=== PATIENT | male | born 1935 | race Caucasian/White ===

== ENCOUNTER → 2017-02-13 | Outpatient (CLI) | payer MEDICARE ==
[2015-11-14 12:05] VITALS: BP 147/75
[~2017-02-13] MED LIST: ASCO500T3 PO; ASPI-630 PO; ATORVASTATIN CA80 MG PO; CARV6.252 PO; CHOL10003 PO; CILO100T PO; DOXY100T PO; EMPA1TAB PO; FOLI1TAB16 PO; GLIM4TAB2 PO; INSU100I13 SQ; LISI2.5T PO; MULT-208 PO; NITR0.4T22 SL; PANT40TA5 PO; PIOG30TA41 PO; TOLT4CAP PO
--- NOTE | 2017-02-13 09:53 | RAD ---
Examination: 3 views of the left thumb History: History of pain in the distal left thumb Comparison: None available Findings: The alignment of the first metacarpophalangeal, interphalangeal joint grossly appears unremarkable. Moderate degenerative changes identified in the first metacarpal joint and metacarpophalangeal joint. There is no obvious acute fracture identified. Mild soft tissue prominence identified in the distal aspect of the thumb, nonspecific could be secondary to swelling or infection. Impression No acute osseous findings. Mild soft tissue prominence identified in the distal aspect of the thumb, nonspecific could be secondary to swelling or infection. Consider follow-up MRI.
== END | disposition home or self-care (01) ==
LOC: DXRADRC 08:10
PROVIDERS: ATTEND Physician Assistant Medical
DX: M18.12 Unilateral primary osteoarthritis of first carpometacarpal joint, left hand (principal)
CPT/HCPCS: 73140

== ENCOUNTER → 2017-02-14 | Outpatient (CLI) | payer MEDICARE ==
[2015-11-14 12:05] VITALS: BP 147/75
[2017-02-14 13:02] LABS: CALCIUM 9.3 mg/dL (8.5-10.1); GFR 72.1; MAGNESIUM 2.3 mg/dL (1.8-2.4); POTASSIUM 4.3 mmol/L (3.5-5.1)
[2017-02-14 13:11] LABS: BASO # 0.1 x10^3/uL (0.0-0.2); BASO % 1 % (0-3); EOS # 0.2 x10^3/uL (0.0-0.7); EOS % 2 % (0-3); HEMOGLOBIN 15.8 g/dL (13.0-17.5); LYMPH # 1.8 x10^3/uL (1.0-4.8); LYMPH % 22 % (24-48); MEAN CORPUSCULAR HEMOGLOBIN 32 pg (25-35); MEAN CORPUSCULAR HGB CONC 35 g/dL (31-37); MEAN CORPUSCULAR VOLUME 93 fL (79-100); MONO % 12 % (0-9); NEUT # 5.3 x10^3uL (1.8-7.7); NEUT % 63 % (31-73); PLATELET COUNT 230 x10^3/uL (140-400); RED BLOOD COUNT 4.86 x10^6/uL (4.30-5.70); WHITE BLOOD COUNT 8.4 x10^3/uL (4.0-11.0)
== END | disposition home or self-care (01) ==
LOC: LAB 11:54
PROVIDERS: ATTEND Internal Medicine
DX: I73.9 Peripheral vascular disease, unspecified (principal)
CPT/HCPCS: 36415; 80048; 83735; 85025; 85610; 85730

== ENCOUNTER 2019-04-06 14:31 | Emergency (ER) | payer MEDICARE ==
[~2019-04-06] VITALS: Ht 170.2 cm; Wt 76.7 kg
[~2019-04-06 14:31] MED LIST changes: -CARV6.252 PO; +CARV6.2541 PO; -GLIM4TAB2 PO; +GLIM4TAB8 PO
[2019-04-06 14:40] VITALS: BP 148/73
--- NOTE | 2019-04-06 14:55 | PHYS DOC ---
Past History Past Medical History: Anxiety, CAD, Diabetes, High Cholesterol, Heart Disease, Hypertension, Pneumonia Past Surgical History: Appendectomy, Tonsillectomy, Other Additional Past Surgical Histo: NUMEROUS CARDIAC STENTS Alcohol Use: None Drug Use: None Adult General Chief Complaint Chief Complaint: TOE PROBLEM [facility] HPI Patient is an 83-year-old male who is on [place] course presents with about a 12 hour history of a right toe injury. Patient was clipping his toenails last night and accidentally cut some skin on the tip of his right great toe. He's had tr ouble getting the bleeding controlled. He denies any pain to the area. Patient states his tetanus is up-to-date.[] Review of Systems Review of Systems Constitutional: Denies fever or chills [] Eyes: Denies change in visual acuity, redness, or eye pain [] HENT: Denies nasal congestion or sore throat [] Respiratory: Denies cough or shortness of breath [] Cardiovascular: No additional information not addressed in HPI [] GI: Denies abdominal pain, nausea, vomiting, bloody stools or diarrhea [] : Denies dysuria or hematuria [] Musculoskeletal: Denies back pain or joint pain [] Integument: Per history of present illness[] Neurologic: Denies headache, focal weakness or sensory changes [] Endocrine: Denies polyuria or polydipsia [] All other systems were reviewed and found to be within normal limits, except as documented in this note. Allergies Allergies Allergies Coded Allergies Type Severity Reaction Last Updated Verified No Known Drug Allergies 08/17/14 No Physical Exam Physical Exam Constitutional: Well developed, well nourished, no acute distress, non-toxic appearance. [] HENT: Normocephalic, atraumatic, bilateral external ears normal, oropharynx moist, no oral exudates, nose normal. [] Eyes: PERRLA, EOMI, conjunctiva normal, no discharge. [] Neck: Normal range of motion, no tenderness, supple, no stridor. [] Cardiovascular:Heart rate regular rhythm, no murmur [] Lungs & Thorax: Bilateral breath sounds clear to auscultation [] Abdomen: Bowel sounds normal, soft, no tenderness, no masses, no pulsatile mass es. [] Skin: Warm, dry, no erythema, no rash. [] Back: No tenderness, no CVA tenderness. [] Extremities: There is a tiny 0.25 cm laceration to the tip of his right great toe that is actively oozing blood. [] Neurologic: Alert and oriented X 3, normal motor function, normal sensory function, no focal deficits noted. [] Psychologic: Affect normal, judgement normal, mood normal. [] Current Patient Data Vital Signs Vital Signs Date Time Temp Pulse Resp B/P (MAP) Pulse Ox O2 Delivery O2 Flow Rate FiO2 04/06/19 14:40 98.5 96 20 97 Room Air EKG EKG [] Radiology/Procedures Radiology/Procedures [] Course & Med Decision Making Course & Med Decision Making Pertinent Labs and Imaging studies reviewed. (See chart for details) [Procedure: Laceration repair. 4% chlorhexidine soap was used to scrub the area and in a bloodless field the wound was inspected for foreign bodies none were found. Then using Dermabond the wound was reapproximated with excellent results.] Dragon Disclaimer Dragon Disclaimer This electronic medical record was generated, in whole or in part, using a voice recognition dictation system. Departure Departure: Impression: Primary Impression: Laceration of right great toe Disposition: HOME, SELF-CARE Condition: STABLE Referrals: PANDA PASTOR MD (PCP) Patient Instructions: Laceration Care, Adult Additional Instructions: Return to the emergency department with any new or concerning symptoms Problem Qualifiers Primary Impression: Laceration of right great toe Encounter type: initial encounter Damage to nail status: without damage Foreign body presence: without foreign body Qualified Codes: S91.111A - Laceration without foreign body of right great toe without damage to nail, initial encounter LANA ISABEL DO Apr 06, 2019 14:55
== END 2019-04-06 14:59 | disposition home or self-care (01) ==
LOC: ER 14:31
DX: S91.111A Laceration without foreign body of right great toe without damage to nail, initial encounter (principal); I25.10 Atherosclerotic heart disease of native coronary artery without angina pectoris; E11.9 Type 2 diabetes mellitus without complications; E78.00 Pure hypercholesterolemia, unspecified; I11.9 Hypertensive heart disease without heart failure; W27.8XXA Contact with other nonpowered hand tool, initial encounter; Y93.89 Activity, other specified; Y92.89 Other specified places as the place of occurrence of the external cause; Y99.8 Other external cause status
CPT/HCPCS: 12001; 99283

== ENCOUNTER → 2019-08-22 | Outpatient (CLI) | payer MEDICARE ==
--- NOTE | 2019-08-22 13:36 | RAD ---
Chest, PA and Lateral: Technique: PA and lateral views of the chest were obtained. History: Shortness of breath. Comparison: 11/14/2015. Findings/ impression: The heart and pulmonary vasculature appear within normal limits. Mild diffuse prominent appearing bilateral interstitial lung markings likely chronic interstitial changes similar to prior exam. Moderate degenerative changes thoracic spine. Electronically signed by: Live Willson MD (08/22/2019 1:33 PM) [id number]
== END | disposition home or self-care (01) ==
LOC: DXRAD 13:01
PROVIDERS: ATTEND Family Medicine
DX: J84.9 Interstitial pulmonary disease, unspecified (principal); M47.814 Spondylosis without myelopathy or radiculopathy, thoracic region
CPT/HCPCS: 71046

== ENCOUNTER → 2020-05-07 | Outpatient (CLI) | payer MEDICARE ==
[~2020-05-07] MED LIST changes: -PANT40TA5 PO; +PANT40TA6 PO
--- NOTE | 2020-05-07 17:08 | RAD ---
EXAM: Abdomen acute complete. HISTORY: Pain. COMPARISON: None. FINDINGS: A frontal view of the chest and frontal upright and supine views of the abdomen were obtain ed. There is no infiltrate, pleural effusion or pneumothorax. There are circumscribed nodules overlyi ng the lower thorax due to nipple shadows. There are few calcified granulomas. There are chronic inte rstitial changes. There is a moderate hiatal hernia. There is gas and stool within the colon. There is no evidence of bowel obstruction. There is no free air. There is a stent within the left renal artery. There are vascular calcifications. IMPRESSION: 1. No acute pulmonary finding. 2. Nonobstructive bowel gas pattern. Electronically signed by: Tresa Landeros MD (05/07/2020 5:06 PM) [facility]
== END ==
LOC: RAD 15:55
PROVIDERS: ATTEND Family Medicine
DX: R10.84 Generalized abdominal pain (principal); K44.9 Diaphragmatic hernia without obstruction or gangrene; Z95.5 Presence of coronary angioplasty implant and graft
CPT/HCPCS: 74022

== ENCOUNTER → 2020-05-27 | Outpatient (CLI) | payer MEDICARE ==
[~2020-05-27] MED LIST changes: +APIX5TAB3 PO; +CLOT15CR5 TP; +MAGN250T10 PO; +MELO15TA23 PO; +SUCR1TAB PO
--- NOTE | 2020-05-27 09:24 | RAD ---
EXAM: Renal sonogram. HISTORY: Hematuria. TECHNIQUE: Sonographic imaging of the kidneys and bladder was performed. COMPARISON: None. FINDINGS: The kidneys are normal in size. No solid or cystic renal lesion is seen. There is no hydron ephrosis. The prevoid bladder volume is 55 cc. The ureteral jets are minimally seen. IMPRESSION: Sonographically unremarkable kidneys Electronically signed by: Tresa Landeros MD (05/27/2020 9:22 AM) [id number]
== END ==
LOC: US 08:29
PROVIDERS: ATTEND Family Medicine
DX: R31.9 Hematuria, unspecified (principal)
CPT/HCPCS: 76770

== ENCOUNTER → 2020-06-12 | Outpatient (CLI) | payer MEDICARE ==
[~2020-06-12] MED LIST changes: -APIX5TAB3 PO; -CLOT15CR5 TP; -MAGN250T10 PO; -MELO15TA23 PO; -SUCR1TAB PO
== END ==
LOC: LAB 10:35
PROVIDERS: ATTEND Nurse Anesthetist, Certified Registered
DX: Z01.812 Encounter for preprocedural laboratory examination (principal); R14.2 Eructation; R10.13 Epigastric pain; Z20.828 Contact with and (suspected) exposure to other viral communicable diseases
CPT/HCPCS: U0003

== ENCOUNTER → 2020-06-16 | Day surgery (SDC) | payer MEDICARE ==
[~2020-06-16] MED LIST changes: +APIX5TAB3 PO; +CLOT15CR5 TP; +IPRATRPIUM/ALBUTEROL 0.5/2.5MG 3 ML NEBU. NEB PRN; +IV RINGERS SOLUTION,LACTATED 1,000 ML IV SCH; +MAGN250T10 PO; +MELO15TA23 PO; +MIDAZOLAM HCL PF 2 MG/2 ML VIAL. IV ONE; +PROPOFOL 10,000 MCG/ML (20ML) VIAL IV ONE; +SUCR1TAB PO
[2020-06-16 08:19] VITALS: BP 108/61
--- NOTE | 2020-06-18 14:08 | PATHOLOGY ---
[facility] Accession Number: [id number] . 01 Material submitted: . gastrointestinal site - GASTRIC BX . 01 Clinical history: . EPIGASTRIC PAIN EGD . 02 Diagnosis: Gastric biopsies: - Very mild chronic gastritis. ([facility] 06/18/2020) [facility] 06/18/2020 0949 Local . 02 Comment: Sections of the gastric biopsy reveal segments of gastric body and gastric antral mucosa showing congestion and very mild chronic inflammation. A properly controlled immunoperoxidase stain for Helicobacter is negative for Helicobacter organisms. ([facility] 06/18/2020) . Special stain performed: Immunoperoxidase for Helicobacter . 02 Electronically signed: . Luis Carlos Nogueira MD, Pathologist NPI- [id number] . 01 Gross description: . The specimen is received in formalin, labeled "Darell Duque, gastric biopsy". Received are two segments of pale garcia soft tissue ranging in size from 0.3 to 0.4 cm in maximum dimensions. The specimen is submitted entirely in cassette A1. ([facility]; 06/17/2020) [facility] 06/17/2020 1103 Local . 02 Pathologist provided ICD-10: K29.50 . 02 CPT . 451526, [id number] Specimen Comment: A courtesy copy of this report has been sent to [phone] Specimen Comment: Report sent to Performed at: [facility] [address], [place] [id number] MD Bucky Beltran MD Phone: [phone] Performed at: 02 [facility] [address] [place], [place] [id number] MD Luis Carlos Nogueira MD Phone: [phone]
== END | disposition home or self-care (01) ==
LOC: SURG 06:26
PROVIDERS: ATTEND Emergency Medicine
DX: R10.13 Epigastric pain (principal); R14.0 Abdominal distension (gaseous); K44.9 Diaphragmatic hernia without obstruction or gangrene; Q39.9 Congenital malformation of esophagus, unspecified; K29.50 Unspecified chronic gastritis without bleeding; I11.9 Hypertensive heart disease without heart failure; E11.9 Type 2 diabetes mellitus without complications; E78.00 Pure hypercholesterolemia, unspecified; F41.9 Anxiety disorder, unspecified; I25.10 Atherosclerotic heart disease of native coronary artery without angina pectoris; Z87.891 Personal history of nicotine dependence; Z79.899 Other long term (current) drug therapy; Z79.82 Long term (current) use of aspirin; Z95.5 Presence of coronary angioplasty implant and graft; Z87.01 Personal history of pneumonia (recurrent); Z98.890 Other specified postprocedural states
CPT/HCPCS: 43239; 82947; 88305; 88342; J2704

== ENCOUNTER → 2020-06-24 | Outpatient (CLI) | payer OTHER ==
[2020-06-16 08:19] VITALS: BP 108/61
[~2020-06-24] MED LIST changes: -IPRATRPIUM/ALBUTEROL 0.5/2.5MG 3 ML NEBU. NEB PRN; -IV RINGERS SOLUTION,LACTATED 1,000 ML IV SCH; -MIDAZOLAM HCL PF 2 MG/2 ML VIAL. IV ONE; -PROPOFOL 10,000 MCG/ML (20ML) VIAL IV ONE
--- NOTE | 2020-06-24 16:46 | RAD ---
History: Reason: ABDOMINAL BLOATING BELCHING GASTRITIS / Spl. Instructions: / History: Procedure: The patient ate a standard meal containing 2 mCi Tc-99m sulfur colloid. Scintigraphic images of the a bdomen were obtained. Counts were obtained. Findings: Retention percentages are as follows: 1 Hr: 67 2 Hr:48 3 Hr:30 4 Hr:3 Time to half emptying for solids is estimated at 115 minutes Normal Retention Percentage Range is as Follows: 1 Hr: 35-91% 2 Hr: 2.7-60% 3 Hr: 0.5-28% 4 Hr: 0-10% Impression: Time to half emptying for solids is estimated at 115 minutes which is mildly delayed. The gastric re tention percentages are within normal limits at the 1, 2 and 4 hour time point with slight delay at 3 hour period Electronically signed by: Howie Fagan MD (06/24/2020 4:43 PM) [id number]
== END ==
LOC: NM 07:33
PROVIDERS: ATTEND Emergency Medicine
DX: K29.60 Other gastritis without bleeding (principal); R14.0 Abdominal distension (gaseous); R14.2 Eructation
CPT/HCPCS: 78264; A9541

== ENCOUNTER → 2020-10-22 | Outpatient (CLI) | payer MEDICARE ==
[2020-06-16 08:19] VITALS: BP 108/61
--- NOTE | 2020-10-22 13:43 | RAD ---
XR EXAM OF ANKLE_RIGHT 3VIEWS History: Reason: RIGHT ANKLE PAIN / Spl. Instructions: / History: Technique: 3 views right ankle Comparison: None. Findings: Symmetric ankle mortise. Moderate ankle DJD. Well-corticated ossifications adjacent to the medial mal leolus, likely related to degenerative changes or prior trauma. No acute fracture. Vascular calcifica tions. Plantar calcaneal spur. Impression: 1. Moderate right ankle DJD. Electronically signed by: Gunnar Chow DO (10/22/2020 1:41 PM) [id number]
== END ==
LOC: RAD 10:05
PROVIDERS: ATTEND Orthopaedic Surgery Sports Medicine
DX: M19.071 Primary osteoarthritis, right ankle and foot (principal)
CPT/HCPCS: 73610

== ENCOUNTER → 2020-12-14 | Outpatient (CLI) | payer MEDICARE ==
[2020-06-16 08:19] VITALS: BP 108/61
--- NOTE | 2020-12-14 17:12 | RAD ---
Chest, PA and Lateral: Technique: PA and lateral views of the chest were obtained. History: Cough. Comparison: 08/22/2019. Findings: The cardiomediastinal silhouette grossly appears unremarkable. Mild prominent bilateral interstitial lung markings likely chronic interstitial changes similar to prior exam. Impression: No acute cardiopulmonary findings. Electronically signed by: Live Willson MD (12/14/2020 5:10 PM) [id number]
== END ==
LOC: RAD 15:04
PROVIDERS: ATTEND Family Medicine
DX: R05 Cough (principal)
CPT/HCPCS: 71046

== ENCOUNTER 2020-12-20 09:08 | Emergency (ER) | payer MEDICARE ==
[~2020-12-20] VITALS: Ht 170.2 cm; Wt 70.0 kg
[~2020-12-20 09:08] MED LIST changes: -LISI2.5T PO; +LISI2.5T12 PO
[2020-12-20] MEDS ORDERED: CEPH500C PO (09:42)
--- NOTE | 2020-12-20 09:42 | PHYS DOC ---
Past History Past Medical History: Anxiety, CAD, Diabetes, High Cholesterol, Heart Disease, Hypertension, Pneumonia Past Surgical History: No Surgical History Additional Past Surgical Histo: NUMEROUS CARDIAC STENTS Alcohol Use: Occasionally Drug Use: None Adult General Chief Complaint Chief Complaint: FOOT INJURY PAIN HPI HPI Patient is an 85-year-old male with insulin-dependent diabetes who presents with concerns for foot wound. States it started out as just a dry crack on his right heel and over the past week or so seems to have gotten deeper. Denies known traumas to the foot, fevers, chest pain, shortness of breath, abdominal pain, nausea, vomiting. Denies any bleeding or pus from the site. States he did not really hurt and is not stopping him from walking. States he went to his primary care physicians and has had a wound clinic appointment set up the day after tomorrow but was worried that it was getting infected before then and wanted to come in, Review of Systems Review of Systems Review of systems otherwise unremarkable except noted in HPI Allergies Allergies Allergies Coded Allergies Type Severity Reaction Last Updated Verified No Known Drug Allergies 08/17/14 No Physical Exam Physical Exam Constitutional: Well developed, well nourished, no acute distress, non-toxic appearance. [] HENT: Normocephalic, atraumatic, bilateral external ears normal, oropharynx moist, no oral exudates, nose normal. [] Eyes: conjunctiva normal, no discharge. [] Cardiovascular:Heart rate regular rhythm, no murmur [] Lungs & Thorax: Bilateral breath sounds clear to auscultation [] Skin: Warm, dry, no erythema, no rash. [] Extremities: No tenderness, no cyanosis, no clubbing, ROM intact, no edema, 1 cm superficial lesion on medial posterior right heel with no bleeding or signs of infection, no crepitus. [] Neurologic: Alert and oriented X 3, normal motor function, normal sensory function, able to sit, stand or walk without issue no focal deficits noted. [] Psychologic: Affect normal, judgement normal, mood normal. [] Current Patient Data Vital Signs Vital Signs Date Time Temp Pulse Resp B/P (MAP) Pulse Ox O2 Delivery O2 Flow Rate FiO2 12/20/20 09:14 98.0 99 18 120/64 99 EKG EKG [] Radiology/Procedures Radiology/Procedures [] Heart Score C/O Chest Pain: No Risk Factors: Risk Factors: DM, Current or recent (<one month) smoker, HTN, HLP, family his tory of CAD, obesity. Risk Scores: Risk Factors: DM, Current or recent (<one month) smoker, HTN, HLP, family history of CAD, obesity. Course & Med Decision Making Course & Med Decision Making Patient is an 85-year-old male that presents with wound on his foot for evaluation Vital signs not concerning. Physical exam noted above. No signs of infection. Wound is superficial currently with no bleeding. Patient has appointment with wound care clinic day after tomorrow. Started on antibiotics in the emergency department given high risk of infection and diabetic foot. Discussed all findings with family and advised to call primary care physician in the morning to update on ED visit. Advised to keep wound care appointment on Monday. Gave strict return precautions to the ED. Family grateful, verbalized understanding agreed with plan of discharge. [] Dragon Disclaimer Dragon Disclaimer This electronic medical record was generated, in whole or in part, using a voice recognition dictation system. Departure Departure: Impression: Primary Impression: Wound of foot Disposition: HOME / SELF CARE / HOMELESS Condition: GOOD Referrals: PANDA PASTOR MD (PCP) Patient Instructions: Wound Care, [id number] Additional Instructions: Thank you for coming into the emergency department today and allowing us to take care of you. Please read all the attached information above very carefully. As discussed, keep the area clean, and dry using warm soap and water several times daily and keep bandaged. Please try not to walk too much as this could worsen the wound, and if you do walk use the shoe given to you and your cane. Please take your antibiotics as prescribed. Please call your primary care physician in the morning to update on your ED visit and set up a follow-up. Please keep your wound care appointment on Monday. Please come back to the ED with new or concerning symptoms as discussed Scripts Cephalexin (CEPHALEXIN) 500 Mg Capsule 1 CAP PO TID for foot wound for 5 Days, #15 CAP Prov: ULYSSES MCDERMOTT MD 12/20/20 ULYSSES MCDERMOTT MD Dec 20, 2020 09:42
[2020-12-20] MEDS ORDERED: ACETAMINOPHEN 500 MG TABLET PO ONE (09:45)
[2020-12-20] MEDS ORDERED: CEPHALEXIN 250 MG CAPSULE PO ONE (09:45)
[2020-12-20 10:14] VITALS: BP 120/64
== END 2020-12-20 10:10 | disposition home or self-care (01) ==
LOC: ER 09:08
DX: E11.621 Type 2 diabetes mellitus with foot ulcer (principal); T81.49XA Infection following a procedure, other surgical site, initial encounter; L97.519 Non-pressure chronic ulcer of other part of right foot with unspecified severity; E78.5 Hyperlipidemia, unspecified; I10 Essential (primary) hypertension
CPT/HCPCS: 99283